=== PATIENT | female | born 1985 | race Caucasian/White ===

== ENCOUNTER 2025-04-13 16:06 | Outpatient (REF) | payer MEDICAID, SELFPAY ==
[2025-04-13 21:53] LABS: HCT 39.1 % (36.0-46.0); HGB 13.2 g/dL (11.2-15.7); MCH 29.2 pg (27.0-33.0); MCHC 33.8 % (32.0-36.0); MCV 87 fL (80-95); MPV 10.3 fL (8.0-11.0); Platelet Count 256 10^3/uL (130-400); RBC 4.52 10^6/uL (3.93-5.22); RDW 11.7 % (11.7-14.6); RDW-SD 36.7 fL; WBC 7.11 10^3/uL (4.4-10.8)
[2025-04-13 22:10] LABS: Hemoglobin A1C 5.1 % (<5.7)
[2025-04-13 22:13] LABS: ALT 23 U/L (14-59); AST 14 U/L (15-37); Albumin 4.4 g/dL (3.4-5.0); Alkaline Phosphatase 81 U/L (46-116); Anion Gap 10.2 mmol/L (3-11); BUN 9 mg/dL (7-18); Bilirubin, Total 0.6 mg/dL (0.2-1.0); CO2 28.8 mmol/L (21.0-32.0); Calcium 9.2 mg/dL (8.5-10.1); Calculated LDL 113 mg/dL (<100); Chloride 101 mmol/L (98-107); Cholesterol 185 mg/dL (<200); Estimated GFR 97.26 (mL/min/1.73m2); Glucose 93 mg/dL (74-106); HDL Cholesterol 63 mg/dL (>or=50); Potassium 3.7 mmol/L (3.5-5.1); Sodium 140 mmol/L (136-145); Total Protein 7.5 g/dL (6.4-8.2); Triglyceride 47 mg/dL (<150)
== END 2025-04-13 16:07 | disposition home or self-care (01) ==
LOC: NCHCN 16:06
DX: Z00.00 Encounter for general adult medical examination without abnormal findings (principal)
CPT/HCPCS: 80053; 80061; 85027; 83036